=== PATIENT | female | born 1970 | race Caucasian/White ===

== ENCOUNTER → 2016-09-13 | Outpatient (CLI) | payer BC ==
--- NOTE | 2016-09-13 16:39 | MAMMOGRAPHY REPORT ---
BILATERAL DIGITAL DIAGNOSTIC MAMMOGRAM TOMOSYNTHESIS AND TARGETED BILATERAL ULTRASOUND: 09/13/2016 CLINICAL HISTORY: Short interval follow-up of right breast masses. The largest mass was biopsied De 2014, however, the pathology did not account for the presence of a mass. TECHNIQUE: Breast tomosynthesis in addition to standard 2D mammography was performed. Bilateral CC and MLO 2-D and tomosynthesis views were obtained. COMPARISON: Comparison is made to exams dated: 03/13/2016 ultrasound, 03/13/2016 mammogram, 08/26/2015 mammogram, 07/01/2013 mammogram, 07/28/2015 mammogram, and 03/26/2011 mammogram - [facility]. BREAST COMPOSITION: The tissue of both breasts is heterogeneously dense, which may obscure small ma sses. FINDINGS: Again noted is a partially circumscribed and partially obscured 16 mm mass in the right b reast at approximately 2:00 with a biopsy marker clip seen within the mass. The mass does not appea r significantly changed dating back to the August 2015 exam. The other previously seen smaller ad jacent masses not clearly seen on the current exam. There is a possible circumscribed round 17 mm mass seen within the left lateral breast on the cc mica osynthesis images. The remainder of both breasts are stable compared to prior exams, without suspic ious masses, calcifications, or areas of architectural distortion noted. Again noted is a lobulated circumscribed hypoechoic mass in the right breast at 2:00, 7 cm from the nipple. This measures 17 x 10 x 13 mm, previously measuring 15 x 9 x 13 mm on the August 2015 exa m. The mass is stable in size and appearance when accounting for differences in measurement techniq ue. The adjacent hypoechoic circumscribed mass in the right breast at 2:00, 8 cm from the nipple is also stable, currently measuring 7 x 4 x 7 mm, previously measuring 6 x 8 mm on the August 2015 e xam. Targeted ultrasound was performed of the left lateral breast in the region of the possible mass seen on one view only. No suspicious solid masses were evident. A few scattered benign cysts were seen , including a 7 x 4 mm anechoic cyst in the left breast at 4:00, 4 cm from the nipple. Another cyst is seen within the left breast at 2:00, 6 cm in the nipple, measuring 8 x 4 mm. In the left breast at 3:00 far laterally approximately 15 cm from the nipple, there is a morphologically normal intram ammary lymph node which measures 13 x 4 x 7 mm. This is felt to correlate with the mammographic mas s. IMPRESSION: ACR-BI-RADS CATEGORY 3: PROBABLY BENIGN, TARGETED ULTRASOUND ACR-BI-RADS CATEGORY 3: IA OBABLY BENIGN Two adjacent hypoechoic masses in the right 2:00 breast are stable dating back to the August 2015 exam. The larger masses was previously biopsied and yielded benign breast tissue which did not acco unt for the presence of a mass. The masses are probably benign given the stability and morphology a nd may represent fibroadenomas. Recommend bilateral diagnostic mammograms and possible ultrasound i n 12 months, to confirm 2 years of stability of the right breast masses and for routine mammography of the left breast. A follow-up mammogram and an ultrasound in 12 months is recommended. The patient has been verbally notified of the results. Approximately 10% of breast cancers are not detected with mammography. A negative mammographic repor t should not delay biopsy if a clinically suggestive mass is present. Christie Smiley M.D. ah/:09/13/2016 15:02:13 Stripper Color: Love [employer], [facility] letter sent: Follow Up Recommended 3 BI-RADS Code: ACR-BI-RADS Category 3: Probably Benign Ultrasound BI-RADS: ACR-BI-RADS Category 3: P robably Benign
== END | disposition home or self-care (01) ==
LOC: C.MAMM 14:08
PROVIDERS: ATTEND Obstetrics & Gynecology
DX: R92.8 Other abnormal and inconclusive findings on diagnostic imaging of breast (principal); N63 Unspecified lump in breast

== ENCOUNTER → 2017-10-01 | Outpatient (CLI) | payer OTHER ==
[2017-10-01 17:56] LABS: FOLLICLE STIMULAT HORMONE 39.39 IU/L
== END | disposition home or self-care (01) ==
LOC: C.LAB1850 15:55
PROVIDERS: ATTEND Obstetrics & Gynecology
DX: N91.1 Secondary amenorrhea (principal)

== ENCOUNTER → 2017-10-01 | Outpatient (CLI) | payer OTHER ==
--- NOTE | 2017-10-02 15:41 | MAMMOGRAPHY REPORT ---
BILATERAL DIGITAL DIAGNOSTIC MAMMOGRAM TOMOSYNTHESIS WITH CAD AND TARGETED RIGHT ULTRASOUND: 8 CLINICAL HISTORY: 46-year-old woman presents at time of annual bilateral mammography and also close f ollow-up of a benign-appearing circumscribed mass in the 2:00 right breast, which was previously biop sied and yielded benign pathology results. TECHNIQUE: Bilateral breast tomosynthesis in addition to standard 2D mammography was performed. A 2- D right exaggerated lateral CC view was also obtained. Current study was also evaluated with a Compu ter Aided Detection (CAD) system. COMPARISON: Comparison is made to exams dated: 09/13/2016 ultrasound, 09/13/2016 mammogram, 03/13/2016 ult rasound, 03/13/2016 mammogram, 08/26/2015 mammogram, and 08/26/2015 ultrasound biopsy - [facility]. BREAST COMPOSITION: The tissue of both breasts is heterogeneously dense, which may obscure small mas ses. FINDINGS: There is a partially circumscribed lobulated 15 x 11 x 13 mm mass in the 2:00 posterior rig ht breast, with associated ribbon-shaped biopsy marker clip. When comparing back to prior spot compr ession tomosynthesis views obtained 08/18/2015, this mass is stable for 2 years, therefore considered benign. There is fluctuating nodularity throughout the right breast, with a previously identified m ass anterior to the dominant mass less conspicuous on the current view, and a possible new circumscri bed mass posterior to this dominant mass on the current view. No suspicious spiculated or irregular mass, asymmetry, focal area of architectural distortion or suspicious macrocalcifications identified in the right breast. The glandular pattern of the left breast is similar to prior mammograms, without evidence of a new ponce spicious mass, focal area of architectural distortion, asymmetry or suspicious macro calcification. Targeted ultrasound was performed in the 2:00 right breast to reevaluate the hypoechoic solid mass wh ich was previously biopsied and yielded benign pathology results but did not show masslike features a t pathology. A lobulated and circumscribed parallel hypoechoic solid appearing mass is again identif ied measuring 12.8 x 8.3 x 11.8 mm. This has not significantly changed comparing to an ultrasound pe rformed 08/18/2015 at which time it measured 14.8 x 9.0 x 12.5 mm. Again with 2 years of stability t his is considered benign and no further close follow-up is needed at this time. Other scattered benign anechoic cysts are seen in the right breast on targeted ultrasound. IMPRESSION: ACR BI-RADS CATEGORY 2: BENIGN, TARGETED ULTRASOUND ACR BI-RADS CATEGORY 2: BENIGN Stable bilateral mammograms. In particular, a dominant circumscribed mass with associated biopsy mar ker clip in the 2:00 posterior right breast is unchanged mammographically for 2 years, therefore cons idered benign. This mass is also visualized sonographically and also unchanged over the course of 2 years. There is no mammographic or targeted sonographic evidence of malignancy. Recommend routine s creening tomosynthesis mammography in one year. These results and recommendations were discussed with the patient at the time of the exam. Approximately 10% of breast cancers are not detected with mammography. A negative mammographic report should not delay biopsy if a clinically suggestive mass is present. Adelaida Sin M.D. ay/:10/01/2017 15:29:59 Executive Meeting Manager: [employer], [facility] letter sent: Normal 1/2 BI-RADS Code: ACR BI-RADS Category 2: Benign Ultrasound BI-RADS: ACR BI-RADS Category 2: Benign
== END | disposition home or self-care (01) ==
LOC: C.MAMM 13:57
PROVIDERS: ATTEND Obstetrics & Gynecology
DX: N63.12 Unspecified lump in the right breast, upper inner quadrant (principal)

== ENCOUNTER → 2017-10-01 | Outpatient (CLI) | payer OTHER | END | disposition home or self-care (01) | LOC: C.PAPS 09:43 | PROVIDERS: ATTEND Obstetrics & Gynecology | DX: Z12.4 Encounter for screening for malignant neoplasm of cervix (principal) ==